=== PATIENT | female | born 1990 | race Two or more races ===

== ENCOUNTER 2024-10-24 18:13 | Emergency (ER) | payer OTHER ==
[~2024-10-24] VITALS: Ht 160 cm; Wt 97.5 kg
[2024-10-24] MEDS ORDERED: 0.9 % SODIUM CHLORIDE 1,000 ML IV STA (20:09)
[2024-10-24] MEDS ORDERED: FAMOtidine 10 MG/ML (4ML VIAL) IV PUSH STA (20:09)
[2024-10-24] MEDS ORDERED: KETOROLAC TROMETHAMINE 30 MG VIAL IV STA (20:11)
[2024-10-24] MEDS ORDERED: HYOSCYAMINE SULFATE 0.125 MG TAB.SUBL SL ONE (20:15)
[2024-10-24 21:38] LABS: BASO % 0.3 % (0.1-1.2); EOS # 0.00 (0.04-0.54); EOS % 0.0 % (0.7-7.0); LYMPH # 1.16 (1.18-3.74); LYMPH % 8.0 % (19.3-53.1); MEAN PLATELET VOLUME 9.30 fl (9.4-12.4); MONO # 0.58 (0.24-0.82); MONO % 4.0 % (4.7-12.5); NEUT # 12.75 (1.56-6.13); NEUT % 87.4 % (34.0-71.1); RED CELL DISTRIBUTION WIDTH 16.2 % (11.6-14.4)
[2024-10-24 22:06] LABS: INR 1.04
[2024-10-24 22:28] LABS: ALT/SGPT 23.0 U/L (12-78); AST/SGOT 13.0 U/L (15-37); BILIRUBIN TOTAL 0.59 mg/dL (0.3-1.2); BILIRUBIN,CONJUGATED 0.14 mg/dL (0.0-0.2); BUN CREA RATIO 14.0 (7.0-25.0); CREATININE SERUM 0.7 mg/dL (0.55-1.02); GFR 96.97; GLOBULINA 3.8 G/DL (2.4-3.5); GLUCOSE FASTING 114.0 mg/dL (65-100); OSMOLALITY SERUM 283.0 MOSM/KG (275-295)
== END 2024-10-24 23:42 | disposition home or self-care (01) ==
LOC: ER 18:13
DX: R10.9 Unspecified abdominal pain (principal)

== ENCOUNTER 2024-12-17 07:00 | Day surgery (SDC) | payer OTHER ==
[2024-12-10 07:47] VITALS: BP 134/84
[2024-12-10 08:38] LABS: BASO % 0.7 % (0.1-1.2); EOS # 0.06 (0.04-0.54); EOS % 0.7 % (0.7-7.0); LYMPH # 3.01 (1.18-3.74); LYMPH % 33.6 % (19.3-53.1); MEAN PLATELET VOLUME 9.30 fl (9.4-12.4); MONO # 0.59 (0.24-0.82); MONO % 6.6 % (4.7-12.5); NEUT # 5.21 (1.56-6.13); NEUT % 58.2 % (34.0-71.1); RED CELL DISTRIBUTION WIDTH 19.1 % (11.6-14.4)
[2024-12-10 08:59] LABS: URINE APPEARANCE Clear; URINE BILIRRUBIN Negative (NEGATIVE); URINE BLOOD Negative; URINE COLOR Yellow; URINE GLUCOSE Negative (NEGATIVE); URINE KETONE Negative (NEGATIVE); URINE LEUKOCYTE Moderate; URINE NITRATE Negative; URINE PROTEIN Negative (NEGATIVE); URINE UROBILINOGEN 0.2 E.U./dl
[2024-12-10 09:00] LABS: URINE BACTERIA 686.3 uL (0.0-1933); URINE EPITHELIAL CELLS 76.8 uL (0.0-38.8); URINE RBC 4.2 uL (0.0-20.8); URINE WBC 51.5 uL (0.0-23.2)
[2024-12-10 09:04] LABS: URINE CAST 0.43 uL (0.0-1.40)
[2024-12-10 09:21] LABS: INR 1.02
[2024-12-10 09:36] LABS: ALT/SGPT 30.0 U/L (12-78); AST/SGOT 17.0 U/L (15-37); BILIRUBIN TOTAL 0.7 mg/dL (0.3-1.2); BUN CREA RATIO 11.0 (7.0-25.0); CREATININE SERUM 0.64 mg/dL (0.55-1.02); GFR 107.54; GLOBULINA 3.5 G/DL (2.4-3.5); GLUCOSE FASTING 81.0 mg/dL (65-100); OSMOLALITY SERUM 282.0 MOSM/KG (275-295)
[~2024-12-17] VITALS: Ht 157.5 cm; Wt 93.4 kg
[2024-12-17] MEDS ORDERED: CEFAZOLIN SODIUM 1,000 MG VIAL ONE (08:17)
[2024-12-17] MEDS ORDERED: BUPIVACAINE HCL/Mpf 0.5% 10ML VIAL ONE (09:07)
[2024-12-17] MEDS ORDERED: BUPIVACAINE HCL/MPF 0.5% 30ML VIAL ONE (09:07)
[2024-12-17] MEDS ORDERED: CELEBREX200MG PO (09:27)
[2024-12-17] MEDS ORDERED: TRAMADOL HCL50 MG PO (09:27)
[2024-12-17] MEDS ORDERED: MIRALAX17 GM PO (09:27)
[2024-12-17] MEDS ORDERED: TYLENOL ARTHRI650 MG PO (09:27)
[2024-12-17] MEDS ORDERED: SUGAMMADEX SODIUM 200 MG/2 ML VIAL IV ONE (10:37)
== END 2024-12-17 14:50 | disposition home or self-care (01) ==
LOC: CIR.AMB 07:00
PROVIDERS: ATTEND Surgery
DX: K80.10 Calculus of gallbladder with chronic cholecystitis without obstruction (principal)